=== PATIENT | male | born 1975 | race Caucasian/White ===

== ENCOUNTER 2017-12-06 16:14 | Emergency (ER) | payer OTHER ==
[~2017-12-06] VITALS: Ht 160 cm; Wt 54.9 kg
== END 2017-12-06 21:59 | disposition home or self-care (01) ==
LOC: ER 16:14
DX: J22 Unspecified acute lower respiratory infection (principal)

== ENCOUNTER → 2019-05-06 | Emergency (ER) | payer OTHER ==
[~2019-05-06] VITALS: Ht 160 cm; Wt 55.3 kg
== END | disposition left against medical advice (07) ==
LOC: ER 11:59
DX: J34.0 Abscess, furuncle and carbuncle of nose (principal)

== ENCOUNTER → 2020-04-14 | Emergency (ER) | payer OTHER | END | disposition left against medical advice (07) | LOC: ER 23:19 | DX: Z53.20 Procedure and treatment not carried out because of patient's decision for unspecified reasons (principal) ==